=== PATIENT | male | born 1985 | race Caucasian/White ===

== ENCOUNTER 2019-07-15 16:35 | Emergency (ER) | payer OTHER ==
[~2019-07-15] VITALS: Ht 172.7 cm; Wt 68.0 kg
[2019-07-15 16:55] VITALS: BP 132/85
--- NOTE | 2019-07-15 17:12 | ER.PDOC ---
General Chief Complaint: Extremities Stated Complaint: ARM INJURY Time seen by MD: 17:11 Source: patient Exam Limitations: no limitations History of Present Illness Initial Comments Left collar bone pain S/P fall. He denied hitting his head. Occurred: just prior to arrival Severity: moderate Modifying Factors: pain on movement Allergies: Coded Allergies: No Known Drug Allergies (Verified Allergy, Unknown, 07/15/19) Past Medical History Medical History: no pertinent history Surgical History: no surgical history Social History Smoking: cigarettes, greater than 1 pack/day Alcohol Use: rarely Drug Use: none Review of Systems Constitutional: no symptoms reported Respiratory: no symptoms reported Cardiovascular: no symptoms reported Gastrointestinal: no symptoms reported Musculoskeletal: see HPI All Other Systems: Reviewed and Negative Physical Exam General Appearance: Alert, No Apparent Distress Wrist: nml inspection, non-tender, nml ROM Forearm/Elbow: nml inspection, non-tender, nml ROM Arm/Shoulder: tenderness (left clavicle), swelling Neuro/Vasc/Tendon: sensation nml, motor nml, no vascular compromise, tendon function nml Skin: warm/dry Head/ENT: nml inspection, pharynx nml Neck/Back: nml inspection, non-tender Respiratory: chest non-tender, breath sounds nml CVS: heart sounds normal Abdomen: non-tender, no organomegaly Results/Orders Results/Orders Orders - EMELINA CHAMPION MD Xr Clavicle Lt (07/15/19 16:55) Vital Signs Date Time Temp Pulse Resp B/P (MAP) Pulse Ox O2 Delivery O2 Flow Rate FiO2 07/15/19 16:55 98.8 91 16 132/85 (101) 96 Room Air 07/15/19 16:50 98.8 91 16 07/15/19 16:50 98.3 91 16 96 Room Air EKG/XRAY/CT/US XRAY Comments: Left clavicular fracture Departure Time of Disposition: 17:43 Disposition: 01 HOME, SELF-CARE Impression: Primary Impression: Clavicle fracture, shaft Condition: Stable Additional Instructions: Ice Ibuprofen Tylenol #3 F/U with Dr. Hickman on 07/18/19, call for appointment time. Duration or Time Spent with Pa: 45 mins Problem Qualifiers Primary Impression: Clavicle fracture, shaft Encounter type: initial encounter Fracture type: closed Fracture alignment: displaced Laterality: left Qualified Codes: S42.022A - Displaced fracture of shaft of left clavicle, initial encounter for closed fracture EMELINA CHAMPION MD Jul 15, 2019 17:12
--- NOTE | 2019-07-15 17:46 | DIREP ---
PROCEDURE:XRAY CLAVICLE-LT 2 VIEWS COMPARISON:None. INDICATIONS:Pain/injury FINDINGS: BONES:Mildly comminuted transverse fracture of the midclavicular shaft cephalad elevation the proximal fracture fragment by a shaft width. JOINTS:Normal acromioclavicular and glenohumeral joints and coracoclavicular distance. SOFT TISSUES:Normal. OTHER:No additional findings. CONCLUSION:Displaced left clavicular fracture. Dictated by: Janet Lr MD on 07/15/2019 at 05:44 PM
--- NOTE | 2019-07-15 17:56 | NUR ---
SPLINT CLAVICLE SPLINT SECURED IN PLACE.
--- NOTE | 2019-07-15 18:09 | NUR ---
DISMISSAL PT DISCHARGED IN STABLE CONDITION.
[2019-07-15 18:26] VITALS: BP 132/85
== END 2019-07-15 18:09 | disposition home or self-care (01) ==
LOC: ER 16:35
DX: S42.022A Displaced fracture of shaft of left clavicle, initial encounter for closed fracture (principal); F17.210 Nicotine dependence, cigarettes, uncomplicated; W01.0XXA Fall on same level from slipping, tripping and stumbling without subsequent striking against object, initial encounter; Y93.89 Activity, other specified; Y92.89 Other specified places as the place of occurrence of the external cause; Y99.8 Other external cause status
CPT/HCPCS: 99284; 73000-LT

== ENCOUNTER 2019-09-08 07:08 | Day surgery (SDC) | payer SELFPAY ==
[2019-09-08] VITALS (12 sets, daily range): BP systolic 123–155; BP diastolic 72–97
[~2019-09-08] VITALS: Ht 180.3 cm; Wt 68.0 kg
[~2019-09-08 07:08] MED LIST: ANCEF ONE; BRIDION IV ONE; DECADRON ONE; DIPRIVAN IV ONE; EXPAREL 133 MG/10 ML VIAL IJ ONE; LACTATED RINGERS 1,000 ML IV SCH; LACTATED RINGERS 1,000 ML ONE; LACTATED RINGERS 2,000 ML ONE; LIDOCAINE 2% VIAL ONE; NEOSTIGMINE ONE; NS 100ML 100 ML IV ONE; SENSORCAINE 0.5% VIAL ONE; SUBLIMAZE ONE; TORADOL ONE; VERSED ONE; ZEMURON IV ONE; ZOFRAN 4 MG/2 ML VIAL ONE
[2019-09-08 07:34] LABS: BASOPHIL % 0.2 % (0.0-0.2); EOSINOPHIL # 0.2 10^3/uL (0.0-0.2); EOSINOPHIL % 2.4 % (0.0-5.0); LYMPHOCYTES % 31.1 % (24.0-44.0); MONOCYTES # 1.1 10^3/uL (0.3-0.8); NEUTROPHIL # 5.4 10^3/uL (1.8-7.7); NEUTROPHILS % 55.1 % (41.0-85.0); RED CELL DISTRIBUTION WIDTH 14.9 % (11.5-14.5)
[2019-09-08] MEDS ORDERED: SENSORCAINE 0.5% VIAL ONE (07:35)
[2019-09-08 07:50] LABS: CALCIUM 9.2 mg/dL (8.4-10.5); CARBON DIOXIDE 28.6 mmol/L (20.0-32)
[2019-09-08] MEDS ORDERED: DILAUDID ONE (08:28)
[2019-09-08] MEDS ORDERED: VERSED ONE (08:38)
[2019-09-08] MEDS ORDERED: SODIUM CHLORIDE IR ONE (10:27)
[2019-09-08] MEDS ORDERED: APRESOLINE IV PRN (14:00)
[2019-09-08] MEDS ORDERED: ZOFRAN 4 MG/2 ML VIAL IV ONE (14:00)
[2019-09-08] MEDS ORDERED: DILAUDID IV PRN (14:00)
[2019-09-08] MEDS ORDERED: TRANDATE IV PRN (14:00)
[2019-09-08] MEDS ORDERED: SUBLIMAZE IV PRN (14:00)
[2019-09-08] MEDS ORDERED: PHENERGAN IV PRN (14:00)
[2019-09-08] MEDS ORDERED: TRAM50TA PO (14:29)
[2019-09-08] MEDS ORDERED: CEPH-350 PO (14:29)
--- NOTE | 2019-09-08 16:50 | DIREP ---
PROCEDURE:XRAY CLAVICLE-LT 2 VIEWS COMPARISON:[facility], CR, XRAY CLAVICLE-LT, 07/15/2019, 05:29 PM. INDICATIONS:POST ORIF OF THE LEFT CLAVICLE FINDINGS: BONES:Interval internal fixation of previously noted fracture of the mid left clavicle. There is improved alignment when compared to the previous study with overlying plate and screw fixation. Associated skin linda noted. JOINTS:Intact acromioclavicular and glenohumeral joints. SOFT TISSUES:Soft tissue edema and emphysema within the operative region would be consistent with recent operative intervention. CONCLUSION: 1. Interval reduction and internal fixation of previously noted left mid clavicular fracture. Dictated by: Subhash Amaro M.D. On 09/08/2019 at 04:46 PM
--- NOTE | 2019-09-08 18:06 | OPH ---
DATE OF SURGERY: 09/08/2019 PREOPERATIVE DIAGNOSIS: Nonunion of a midshaft, left clavicle fracture. POSTOPERATIVE DIAGNOSIS: Nonunion of a midshaft, left clavicle fracture. OPERATIVE PROCEDURE: Open reduction and internal fixation, left clavicle fracture with a Synthes 7-hole 3.5 locking plate. SURGEON: Woody Hickman MD DRUPAL WEB DEVELOPER: Gavin. ANESTHESIA: General endotracheal. BLOOD LOSS: 100 mL. DRAINS: None. DESCRIPTION OF INDICATIONS: The patient is a 33-year-old male who suffered a left clavicle fracture approximately 2 months ago. He preferred to be treated with a [id number] brace. The patient continues to have pain as well as a severe deformity about the left clavicle. He has motion at the fracture site with palpation as well as pain with range of motion of his arm. The patient's x-rays showed that he has a nonunion of his midshaft left clavicle fracture with minimal callus formation. The patient was given conservative versus surgical options. He wanted to proceed with ORIF. The patient was taken to the operating room today for ORIF of left clavicle nonunion. DESCRIPTION OF PROCEDURE: The patient was placed on the operating table in the supine position. General endotracheal anesthetic was induced without difficulty. The patient was then placed in the beach chair position. The patient had the left upper extremity and the left chest wall sterilely prepped and draped. Incision was made about the anterior border of his clavicle. The incision was taken through the skin and the subcutaneous tissues. The platysma muscle was then dissected off the medial and lateral aspects of the clavicle. The fracture was noted to be comminuted. The soft tissue was dissected off with a hot knife as well as a periosteal elevator. The comminuted bone portion was removed and placed on the back table. Once the patient had any fibrous tissue, both the medial and lateral end of the fracture cleared with a curette. We placed a 7-hole Synthes dorsal clavicle plate on the dorsal aspect of the clavicle. It was held into position with multiple bone clamps. The patient had a 3.5 cortical screw placed medially and laterally just pulled the plate down to the bone. X-rays in the operating room via the C-arm showed satisfactory positioning of the hardware and satisfactory reduction of the fracture. The patient then had the other holes filled with 3.5 locking screws except for the most middle hole, which was left open because it was directly in line with the fracture site. Final AP and lateral C-arm views showed satisfactory hardware position and satisfactory reduction of the fracture. The patient then had the wounds copiously irrigated. The comminuted bone fragment was placed back into the defect about the anterior portion of the clavicle and held into position with two #5 Ethibond sutures. The patient then had the area bone grafted with 5 mL of DBX bone graft. The patient then had the platysma muscle closed with a 2-0 Monocryl in interrupted [id number] manner. The subcutaneous was closed with a 3-0 Monocryl running and barbed. The skin was closed with linda. An Aquacel dressing was applied and he was placed in a shoulder immobilizer. The patient was extubated in the operating room, sent to recovery in stable condition. Woody Hickman MD DR: YOVANA/flor JOB# [id number]
== END 2019-09-08 14:52 | disposition home or self-care (01) ==
LOC: SDC 07:08
PROVIDERS: ATTEND Orthopaedic Surgery
DX: S42.022K Displaced fracture of shaft of left clavicle, subsequent encounter for fracture with nonunion (principal); X58.XXXD Exposure to other specified factors, subsequent encounter; F17.200 Nicotine dependence, unspecified, uncomplicated
CPT/HCPCS: 23515; 36415; 73000; 76000; 80053; 85025; A4217; A4649 ×3; A6197; C1713 ×2; J0690; J1100; J1170; J1885; J2001; J2250 ×2; J2405; J2710; J3010; J3490 ×5; J7050; J7120 ×2